=== PATIENT | male | born 1980 ===

== ENCOUNTER 2023-03-06 04:04 | Day surgery (SDC) | payer OTHER ==
[2023-03-02 13:36] VITALS: BMI 31.1
[2023-03-06] MEDS ORDERED: BUPIVACAINE HCL/PF 0.25% (2.5MG/ML) 10 ML VIAL ONE (15:04)
[2023-03-06] MEDS ORDERED: HEPARIN NA (PORCINE) 5,000 UNITS/ML 1ML VIAL ONE (15:04)
[2023-03-06] MEDS ORDERED: ROCURONIUM BROMIDE 50 MG/5 ML SYRINGE ONE ×2 (15:32→17:38)
[2023-03-06] MEDS ORDERED: PROPOFOL 20 ML ONE (15:33)
[2023-03-06] MEDS ORDERED: MIDAZOLAM HCL 2 MG/2 ML SINGLE DOSE VIAL ONE (15:33)
[2023-03-06] MEDS ORDERED: ceFAZolin SODIUM 1 GM VIAL IVPB ONE (15:55)
[2023-03-06] MEDS ORDERED: ceFAZolin SODIUM 1 GM VIAL ONE (15:57)
[2023-03-06] MEDS ORDERED: DEXAMETHASONE SOD PHOSPHATE 4 MG/1 ML VIAL ONE (15:59)
[2023-03-06] MEDS ORDERED: ONDANSETRON 4 MG/2 ML VIAL ONE ×2 (15:59→18:01)
[2023-03-06] MEDS ORDERED: BUPIVACAINE HCL/PF 0.25% (2.5MG/ML) 10 ML VIAL IJ ONE (16:12)
[2023-03-06] MEDS ORDERED: GLYCOPYRROLATE 0.2 MG/1 ML VIAL ONE ×4 (17:59→18:21)
[2023-03-06] MEDS ORDERED: NEOSTIGMINE METHYLSULFATE 0.5 MG/1 ML - 10 ML MDV ONE (18:00)
[2023-03-06] MEDS ORDERED: ONDANSETRON 4 MG/2 ML VIAL IVPUSH PRN (18:37)
[2023-03-06] MEDS ORDERED: oxyCODONE HCL 5 MG TABLET PO PRN (18:37)
[2023-03-06] MEDS ORDERED: LACTATED RINGERS SOLUTION 1,000 ML IV SCH (18:45)
[2023-03-06 20:04] VITALS: BP 117/74
[2023-03-06 20:26] VITALS: PULSE 91; RESP 18; TEMP 97.7
== END 2023-03-06 21:37 | disposition home or self-care (01) ==
LOC: JASUSAT 04:04 → JASU-SURG 04:04 → J5S 20:21 → JASUSAT 21:37
PROVIDERS: ATTEND Surgery
PROC: 8E0W4CZ Robotic Assisted Procedure of Trunk Region, Percutaneous Endoscopic Approach (ICD-10-PCS; 2023-03-06)
PROC: 0YU64JZ Supplement Left Inguinal Region with Synthetic Substitute, Percutaneous Endoscopic Approach (ICD-10-PCS; principal; 2023-03-06 12:45)
DX: K40.90 Unilateral inguinal hernia, without obstruction or gangrene, not specified as recurrent (principal)
CPT/HCPCS: 49505; S2900; 94760; C1781; J1644